=== PATIENT | female | born 1990 | race Asian ===

== ENCOUNTER → 2018-05-22 | Outpatient (CLI) | payer SELFPAY | LOC: M WUC 10:10 | DX: Z02.1 Encounter for pre-employment examination (principal) ==

== ENCOUNTER → 2018-12-09 | Outpatient (CLI) | payer OTHER ==
--- NOTE | 2018-12-09 11:57 | REP ---
RIGHT WRIST COMPLETE: 12/09/2018 CLINICAL HISTORY: Right wrist pain. Trauma. FINDINGS: Four views show distal radius and ulna intact. Carpal bones and joint spaces are preserved. There is no metacarpal fracture or focal lesion. The visualized MCP joints and proximal phalanges are unremarkable. IMPRESSION: 1. There is no visible or displaced fracture, avulsion, radiopaque foreign body or other acute bony abnormality. Electronically Signed by Saad Santoyo MD 12/09/2018 09:50 P
== END ==
LOC: M LRY 11:01
PROVIDERS: ATTEND Physician Assistant
DX: M25.531 Pain in right wrist (principal); S69.91XA Unspecified injury of right wrist, hand and finger(s), initial encounter; X58.XXXA Exposure to other specified factors, initial encounter; Y92.9 Unspecified place or not applicable